=== PATIENT | female | born 1935 | race Hispanic/Latino ===

== ENCOUNTER 2017-06-28 05:44 | Day surgery (SDC) | payer MEDICARE ==
[2017-06-26 14:28] VITALS: BMI 23.2
[2017-06-28] MEDS ORDERED: Tropicamide 1% Opht SOLUTION OD SCH (06:00)
[2017-06-28] MEDS ORDERED: Phenylephrine 2.5% Opht Soln OD SCH (06:00)
[2017-06-28] MEDS ORDERED: Lactated Ringer's 500 ML IV ONE ×2 (06:00→07:18)
[2017-06-28] MEDS ORDERED: Flurbiprofen 0.03% Opht SOLN OD SCH (06:00)
[2017-06-28] MEDS ORDERED: Cyclopentolate 1% Opth (2 ml) OD SCH (06:00)
[2017-06-28] MEDS ORDERED: Ciprofloxacin 0.3% OPTH SOLN OD SCH (06:00)
[2017-06-28] MEDS: Carbachol 0.01% IO ONE ×5 (08:11→09:34)
[2017-06-28] MEDS: Povidone Iodine Ophthalmic 5% Soln ONE ×2 (08:11→09:22)
[2017-06-28] MEDS: Tetracaine 0.5% Ophth (OR ONLY) ONE ×3 (08:11→09:45)
[2017-06-28] MEDS: Tobramycin/Dexamethasone OPHT OINT ONE ×3 (08:12→09:45)
[2017-06-28] MEDS ORDERED: Hyaluronidase Human, Recombi 150 U/ML VIAL ONE (08:22)
[2017-06-28] MEDS: Lidocaine 2% Inj (20ml) ONE ×2 (08:58→09:22)
[2017-06-28] MEDS: Chondroitin/Hyaluronate Opth Syringe KIT (0.55 ml-0.5 ml) IO ONE ×3 (08:58→09:34)
[2017-06-28] MEDS ORDERED: Midazolam 2 MG/2 ML VIAL ONE (09:15)
[2017-06-28] MEDS ORDERED: Chondroitin/Hyaluronate 40 mg/ml-30 mg/ml Ophth Syringe (0.5 ml) IO ONE (09:40)
[2017-06-28 11:11] VITALS: BP 133/58; PULSE 74; RESP 22; TEMP 98.1; O2SAT 95
--- NOTE | 2017-06-28 13:23 | OP ---
PROCEDURE DATE: 06/28/2017 PREOPERATIVE DIAGNOSIS: Hypermature cataract, right eye. POSTOPERATIVE DIAGNOSIS: Hypermature cataract, right eye. SURGEON: Krish Rodriguez MD OPERATIVE PROCEDURE: Phacoemulsification, right eye with utilization of capsular dye and insertion of posterior chamber implant. ANESTHESIA: Local with intravenous sedation. PROCEDURE: The patient was brought into the operating room and placed in supine position, prepped and draped in the usual fashion for ophthalmic surgery. Lid speculum inserted, lids and exposing globe. On inspection, there was noted to be a hypermature cataract. A side-port incision was made superiorly and inferiorly with disposable sharp blade. An air bubble was injected in the anterior chamber followed by capsular dye to stain the anterior capsule. The dye was irrigated out of the anterior chamber with balanced salt solution. The anterior chamber was deepened with Viscoat. A near clear corneal incision was made temporally with a 2.75-mm keratome. Capsulorrhexis was performed with Utrata forceps. Hydrodissection was carried out with balanced salt solution. The nucleus was then phacoemulsified. Remaining cortical fragments were aspirated with a split irrigation and aspiration system. The capsular sac was filled with Provisc. Posterior chamber lens was injected into the sac and rotated into horizontal position. Provisc was aspirated out of the anterior chamber. Pupil was constricted with Miochol. The wound was hydrated with balanced salt solution and found to be watertight. Topical Timoptic, Betadine, TobraDex ointment, and pressure patch were applied. The patient tolerated the procedure well. Krish Rodriguez MD
== END 2017-06-28 12:21 | disposition home or self-care (01) ==
LOC: C.SDS 05:44
PROVIDERS: ATTEND Ophthalmology
DX: H25.11 Age-related nuclear cataract, right eye (principal)
CPT/HCPCS: 66984; J2250; J3010; J3470; J7120; V2632